=== PATIENT | female | born 1950 | race Caucasian/White ===

== ENCOUNTER 2017-10-29 14:49 | Outpatient (CLI) | payer MEDICARE | END 2017-10-29 14:50 | disposition home or self-care (01) | LOC: BICMAMMO 14:49 | PROVIDERS: ATTEND Internal Medicine | DX: Z12.31 Encounter for screening mammogram for malignant neoplasm of breast (principal) | CPT/HCPCS: 77063; 77067 ==

== ENCOUNTER 2018-11-19 14:52 | Outpatient (CLI) | payer MEDICARE ==
--- NOTE | 2018-11-19 15:42 | BD ---
BONE DENSITOMETRY USING DEXA: Date: 11/19/18 HISTORY: Postmenopausal screening for osteoporosis. FINDINGS: Lumbar Spine: BMD (g/cm2) L1 0.754 T-Score: -2.1 Z-Score: -0.4 L2 0.826 T-Score: -1.8 Z-Score: 0.1 L3 0.844 T-Score: -2.2 Z-Score: -0.2 L4 1.021 T-Score: -0.4 Z-Score: 1.7 L1-L4 0.864 T-Score: -1.7 Z-Score: 0.3 Femoral Neck: 0.586 T-Score: -2.4 Z-Score: -0.7 Total Femur: 0.782 T-Score: -1.3 Z-Score: 0.0 The 10 year fracture risk for a major osteoporotic fracture is 20% and for a hip fracture is 3.7%. IMPRESSION: Osteopenia. POS: [facility]
--- NOTE | 2018-11-20 11:57 | MMO ---
Bilateral MAMMO Bilat Screen [facility]. CLINICAL HISTORY: Patient is 68 years old and is seen for screening. The patient has no family history of breast cancer. The patient has no personal history of cancer. VIEWS: The views performed were: bilateral craniocaudal with tomosynthesis; bilateral mediolateral oblique with tomosynthesis; and bilateral exaggerated craniocaudal. FILMS COMPARED: The present examination has been compared to prior imaging studies performed at [facility] on 10/29/2017, and at [facility] on 10/06/2012 and 01/25/2015. MAMMOGRAM FINDINGS: The breasts are heterogeneously dense, which could obscure a lesion on mammography. There are no suspicious masses, suspicious calcifications, or new areas of architectural distortion. IMPRESSION: THERE IS NO MAMMOGRAPHIC EVIDENCE OF MALIGNANCY. A ROUTINE FOLLOW-UP MAMMOGRAM IN 1 YEAR IS RECOMMENDED. THE RESULTS OF THIS EXAM WERE SENT TO THE PATIENT. ACR BI-RADS Category 1 - Negative MAMMOGRAPHY NOTE: 1. A negative mammogram report should not delay a biopsy if a dominant of clinically suspicious mass is present. 2. Approximately 10% to 15% of breast cancers are not detected by mammography. 3. Adenosis and dense breasts may obscure an underlying neoplasm.
== END 2018-11-19 14:53 | disposition home or self-care (01) ==
LOC: BICMAMMO 14:52
PROVIDERS: ATTEND Internal Medicine
DX: Z12.31 Encounter for screening mammogram for malignant neoplasm of breast (principal); Z78.0 Asymptomatic menopausal state; M85.88 Other specified disorders of bone density and structure, other site
CPT/HCPCS: 77063; 77067; 77080

== ENCOUNTER 2019-05-13 09:01 | Day surgery (SDC) | payer MEDICARE ==
[2019-05-12 10:37] VITALS: BMI 21.0
[~2019-05-13 09:01] MED LIST: Fentanyl 100 MCG/2 ML VIAL ONE; Fluorouracil 100 MG, Enoxaparin Sodium 25 MG, EPINEPHrine 0.3 MG in Ophthalmic Irrigati... IRR SCH; Midazolam HCl 2 mg/2 ml Vial ONE
[2019-05-13] MEDS ORDERED: Cyclopentolate 1% Opth Drop 2 ML BOT ONE (09:14)
[2019-05-13] MEDS ORDERED: Phenylephrine 2.5% Ophth Soln 5 ML BOT ONE (09:14)
--- NOTE | 2019-05-13 18:02 | OP ---
DATE OF PROCEDURE: 05/13/2019 PREOPERATIVE DIAGNOSIS: Macular hole, left eye. POSTOPERATIVE DIAGNOSIS: Macular hole, left eye. PROCEDURES PERFORMED: Pars plana vitrectomy and internal limiting membrane peel, left eye. ANESTHESIA: Local with monitored anesthesia care. DESCRIPTION OF PROCEDURE: The patient was identified in the preoperative holding area. Appropriate informed consent for the planned surgical procedure on the left eye had been obtained. The patient was transported to the operative suite. Appropriate cardiopulmonary monitoring was established. Local anesthesia was obtained using retrobulbar modified Van Lint lid block using 50:50 mixture of 4% lidocaine and 0.75% bupivacaine. The patient was prepped and draped in usual sterile manner for ophthalmic surgery of the left eye. Lid speculum was placed in the left eye. A 25-gauge trocar was placed in the conjunctiva and sclera superotemporally, inferotemporally, and supranasally. Infusion line was placed inferotemporally. Light pipe vitreous cutter was inserted to the eye. Core vitrectomy was performed. Posterior hyaloid face was elevated using vacuum suction and peeled across the periphery. Indocyanine green dye was infused on the posterior pole x1, identifying the internal limiting membrane. This was elevated using a membrane scraper and peeled across the macula in one piece using end-gripping forceps. Complete air-fluid exchange was performed with 10 minutes being left for fluid to drain posteriorly. Prophylactic laser was placed behind the sclerotomy sites. A 28% sulfur hexafluoride gas was infused into the eye. Trocars were removed. The eye was noted to retain pressure well. Retrobulbar Kenalog and subconjunctival Ancef were placed. Antibiotic ointment was placed. Eye was patched and shielded. The patient was taken to postoperative recovery unit in good condition having suffered no immediate perioperative complications. The patient was instructed to keep patch and shield on, avoid lifting or bending. Followup appointment with Dr. Weston. Job ID: [id number]
== END 2019-05-13 12:05 | disposition home or self-care (01) ==
LOC: SDC 09:01
PROVIDERS: ATTEND Ophthalmology Retina Specialist
PROC: 08T53ZZ Resection of Left Vitreous, Percutaneous Approach (ICD-10-PCS; principal; 2019-05-13)
PROC: 08NF3ZZ Release Left Retina, Percutaneous Approach (ICD-10-PCS; 2019-05-13)
DX: H35.342 Macular cyst, hole, or pseudohole, left eye (principal)
CPT/HCPCS: 67025; J0171; J1650; J2250; J3010; J9190

== ENCOUNTER 2020-03-03 14:10 | Outpatient (CLI) | payer MEDICARE ==
--- NOTE | 2020-03-06 08:57 | MMO ---
Bilateral MAMMO Bilat Screen [facility]. CLINICAL HISTORY: Patient is 69 years old and is seen for screening. The patient has no family history of breast cancer. The patient has no personal history of cancer. VIEWS: The views performed were: bilateral craniocaudal with tomosynthesis and bilateral mediolateral oblique with tomosynthesis. FILMS COMPARED: The present examination has been compared to prior imaging studies performed at [facility] on 10/29/2017 and 11/19/2018, and at [facility] on 10/06/2012 and 01/25/2015. This study has been interpreted with the assistance of computer-aided detection. MAMMOGRAM FINDINGS: The breasts are heterogeneously dense, which could obscure a lesion on mammography. There are no suspicious masses, suspicious calcifications, or new areas of architectural distortion. IMPRESSION: THERE IS NO MAMMOGRAPHIC EVIDENCE OF MALIGNANCY. A ROUTINE FOLLOW-UP MAMMOGRAM IN 1 YEAR IS RECOMMENDED. THE RESULTS OF THIS EXAM WERE SENT TO THE PATIENT. ACR BI-RADS Category 1 - Negative MAMMOGRAPHY NOTE: 1. A negative mammogram report should not delay a biopsy if a dominant of clinically suspicious mass is present. 2. Approximately 10% to 15% of breast cancers are not detected by mammography. 3. Adenosis and dense breasts may obscure an underlying neoplasm. Reported by: PRATIBHA AVELAR MD Electonically Signed: [id number]
== END 2020-03-03 14:11 | disposition home or self-care (01) ==
LOC: BICMAMMO 14:10
PROVIDERS: ATTEND Internal Medicine
DX: Z12.31 Encounter for screening mammogram for malignant neoplasm of breast (principal)
CPT/HCPCS: 77063; 77067

== ENCOUNTER 2020-10-24 15:36 | Outpatient (CLI) | payer MEDICARE ==
--- NOTE | 2020-10-24 16:03 | RAD ---
Exam: Right hip 2 views: HISTORY: Right hip pain COMPARISON: None FINDINGS: Lower lumbar spine spondylosis. Mild degenerative change. No evidence for fracture, dislocation, or other significant acute osseous abnormality. IMPRESSION: No significant acute process.
--- NOTE | 2020-10-24 16:03 | RAD ---
Exam: 2 views lumbar spine HISTORY: Low back pain, radiating to the right leg. COMPARISON: Findings: There are 5 lumbar type vertebra. This severe loss of disc space height at L4-L5. Moderate loss of disc space at L3-L4. Lumbar spine vertebral body heights are maintained. No fracture. Visualized sacrum and bony pelvis are intact Spondylolisthesis: 2.4 mm of retrolisthesis of L3 upon L4. 5.6 mm of retrolisthesis of L4 upon L5. 3.5 mm of anterolisthesis of L5 upon S1. IMPRESSION: Multilevel degenerative changes of the lumbar spine as these above. Spondylolisthesis as above.
== END 2020-10-24 15:37 | disposition home or self-care (01) ==
LOC: BICRAD 15:36
PROVIDERS: ATTEND Internal Medicine
DX: M54.5 Low back pain (principal); M25.551 Pain in right hip; M47.816 Spondylosis without myelopathy or radiculopathy, lumbar region; M43.16 Spondylolisthesis, lumbar region
CPT/HCPCS: 72100

== ENCOUNTER 2020-11-14 12:14 | Outpatient (CLI) | payer MEDICARE | END 2020-11-14 12:15 | disposition home or self-care (01) | LOC: BICMRI 12:14 | PROVIDERS: ATTEND Internal Medicine | DX: M54.5 Low back pain (principal); M47.816 Spondylosis without myelopathy or radiculopathy, lumbar region; M43.16 Spondylolisthesis, lumbar region; M51.26 Other intervertebral disc displacement, lumbar region; M25.78 Osteophyte, vertebrae; M51.25 Other intervertebral disc displacement, thoracolumbar region | CPT/HCPCS: 72148 ==

== ENCOUNTER 2021-08-02 10:44 | Outpatient (CLI) | payer MEDICARE | END 2021-08-02 10:45 | disposition home or self-care (01) | LOC: BICRAD 10:44 | PROVIDERS: ATTEND Internal Medicine | DX: M19.041 Primary osteoarthritis, right hand (principal); M19.042 Primary osteoarthritis, left hand | CPT/HCPCS: 36415; 80053; 80061; 82306; 83520; 85025; 85652; 86140; 86200 ==

== ENCOUNTER 2021-08-29 13:58 | Outpatient (CLI) | payer MEDICARE | END 2021-08-29 13:59 | disposition home or self-care (01) | LOC: BICMAMMO 13:58 | PROVIDERS: ATTEND Internal Medicine | DX: Z12.31 Encounter for screening mammogram for malignant neoplasm of breast (principal); Z13.820 Encounter for screening for osteoporosis; Z78.0 Asymptomatic menopausal state; M85.89 Other specified disorders of bone density and structure, multiple sites | CPT/HCPCS: 77063; 77067; 77080 ==

== ENCOUNTER 2022-09-18 07:56 | Outpatient (CLI) | payer OTHER | END 2022-09-18 07:57 | disposition home or self-care (01) | LOC: BICMAMMO 07:56 | PROVIDERS: ATTEND Internal Medicine | DX: Z12.31 Encounter for screening mammogram for malignant neoplasm of breast (principal) | CPT/HCPCS: 77063; 77067 ==

== ENCOUNTER 2023-08-08 14:29 | Outpatient (CLI) | payer OTHER | END 2023-08-08 14:30 | disposition home or self-care (01) | LOC: BICULT 14:29 | PROVIDERS: ATTEND Internal Medicine | DX: K11.1 Hypertrophy of salivary gland (principal) | CPT/HCPCS: 76536 ==

== ENCOUNTER 2023-10-01 08:44 | Outpatient (CLI) | payer OTHER | END 2023-10-01 08:45 | disposition home or self-care (01) | LOC: BICMAMMO 08:44 | PROVIDERS: ATTEND Internal Medicine | DX: Z12.31 Encounter for screening mammogram for malignant neoplasm of breast (principal); M85.89 Other specified disorders of bone density and structure, multiple sites | CPT/HCPCS: 77063; 77067; 77080 ==